=== PATIENT | female | born 1950 | race Two or more races ===

== ENCOUNTER 2020-03-27 18:14 | Emergency (ER) | payer MEDICARE ==
[2020-03-27] MEDS ORDERED: BOOSTRIX/ADACEL VACCINE (DIPHTH/PERTUSS/ACELL/TETANUS) 0.5ML SYR ONE (19:30)
--- NOTE | 2020-05-24 09:29 | REP ---
LEFT TIBIA/FIBULA AND LEFT KNEE SERIES: 6-VIEWS HISTORY: Unavailable. This report was delayed due to a malware attack on this facility. FINDINGS: 3-views of the left tibia/fibula and 3-views of the left knee are presented. There is nonarticular spurring at the superior pole of the patella and at the distal patellar tendon insertion site on the anterior tibial apophysis. There is mild diffuse osteopenia. No fracture or subluxation is seen. IMPRESSION: Diffuse osteopenia. No acute bony abnormality. Patellar and anterior tibial apophyseal spurring. MTDD
== END 2020-03-27 20:11 | disposition home or self-care (01) ==
LOC: M ED 18:14
DX: S80.212A Abrasion, left knee, initial encounter (principal); V18.2XXA Unspecified pedal cyclist injured in noncollision transport accident in nontraffic accident, initial encounter; Y92.89 Other specified places as the place of occurrence of the external cause; E11.9 Type 2 diabetes mellitus without complications; I10 Essential (primary) hypertension; E78.5 Hyperlipidemia, unspecified; Z79.899 Other long term (current) drug therapy; Z79.82 Long term (current) use of aspirin